=== PATIENT | female | born 1990 | race Caucasian/White ===

== ENCOUNTER 2020-03-27 08:32 | Emergency (ER) | payer OTHER ==
[~2020-03-27] VITALS: Ht 162.6 cm; Wt 59.0 kg
[2020-03-27 08:46] VITALS: Ht 162.6 cm; Wt 59.0 kg
[2020-03-27 09:18] LABS: ALBUMIN 4.9 g/dL (3.4-5.0); ALKALINE PHOSPHATASE 92 U/L (46-116); ALT/SGPT 38 U/L (14-59); AST/SGOT 29 U/L (15-37); BILIRUBIN TOTAL 1.12 mg/dL (0.20-1.00); CALCIUM 9.9 mg/dL (8.5-10.1); CARBON DIOXIDE 30.8 mmol/L (21-32); CHLORIDE SERUM 95 mmol/L (98-107); CREATININE SERUM 0.9 mg/dL (0.6-1.0); GFR1 > 60 mL/min; GLUCOSE SERUM 104 mg/dL (74-106); LIPASE 95 IU/L (73-393); SODIUM SERUM 134 mmol/L (136-145); TOTAL PROTEIN, SERUM 8.8 g/dL (6.4-8.2)
[2020-03-27 09:23] LABS: BASOPHIL % 0.8 % (0-2); PLATELET COUNT 355 x10^3mcL (130-400); RED CELL DISTRIBUTION WIDTH 13.3 % (11.5-14.5)
[2020-03-27 10:30] VITALS: BP 142/74
== END 2020-03-27 10:30 | disposition home or self-care (01) ==
LOC: ED 08:32
PROVIDERS: Student in an Organized Health Care Education/Training Program
DX: E87.6 Hypokalemia (principal); R11.15 Cyclical vomiting syndrome unrelated to migraine; R10.816 Epigastric abdominal tenderness; F12.188 Cannabis abuse with other cannabis-induced disorder; Z88.1 Allergy status to other antibiotic agents; Z88.8 Allergy status to other drugs, medicaments and biological substances
CPT/HCPCS: J1200; J1885; J2765

== ENCOUNTER 2020-04-04 07:34 | Emergency (ER) | payer OTHER ==
[~2020-04-04] VITALS: Ht 162.6 cm; Wt 56.7 kg
[2020-04-04 07:43] VITALS: Ht 162.6 cm; Wt 56.7 kg
[2020-04-04 09:51] LABS: BASOPHIL % 0.2 % (0-2); PLATELET COUNT 241 x10^3mcL (130-400); RED CELL DISTRIBUTION WIDTH 13.2 % (11.5-14.5)
[2020-04-04 09:57] LABS: CARBON DIOXIDE 25.6 mmol/L (21-32); CHLORIDE SERUM 105 mmol/L (98-107); POTASSIUM SERUM 3.4 mmol/L (3.5-5.1); SODIUM SERUM 139 mmol/L (136-145)
[2020-04-04 09:58] LABS: CALCIUM 7.7 mg/dL (8.5-10.1); CREATININE SERUM 0.7 mg/dL (0.6-1.0); GFR1 > 60 mL/min; GLUCOSE SERUM 104 mg/dL (74-106)
[2020-04-04 09:59] LABS: ALT/SGPT 28 U/L (14-59); AST/SGOT 20 U/L (15-37); BILIRUBIN TOTAL 0.42 mg/dL (0.20-1.00)
[2020-04-04 10:00] LABS: AMYLASE 52 U/L (25-115); LIPASE 155 IU/L (73-393)
[2020-04-04 10:15] LABS: ALKALINE PHOSPHATASE 69 U/L (46-116); TOTAL PROTEIN, SERUM 6.9 g/dL (6.4-8.2)
[2020-04-04 11:25] VITALS: BP 152/94
== END 2020-04-04 11:25 | disposition home or self-care (01) ==
LOC: ED 07:34
PROVIDERS: Emergency Medicine
DX: R10.13 Epigastric pain (principal); R11.2 Nausea with vomiting, unspecified; Z88.1 Allergy status to other antibiotic agents; Z88.8 Allergy status to other drugs, medicaments and biological substances
CPT/HCPCS: J1885; J2270; J2550; J3010; J3490; J7030; Q0162

== ENCOUNTER 2020-07-06 10:27 | Emergency (ER) | payer OTHER ==
[~2020-07-06] VITALS: Ht 162.6 cm; Wt 59.0 kg
[2020-07-06 10:36] VITALS: Ht 162.6 cm; Wt 59.0 kg
[2020-07-06 11:29] LABS: BASOPHIL % 0.1 % (0.2-1.3); PLATELET COUNT 323 x10^3mcL (179-408); RED CELL DISTRIBUTION WIDTH 12.7 % (12.3-17.7)
[2020-07-06 11:51] LABS: ALKALINE PHOSPHATASE 72 U/L (46-116); ALT/SGPT 43 U/L (14-59); AST/SGOT 31 U/L (15-37); BILIRUBIN TOTAL 0.7 mg/dL (0.20-1.00); CARBON DIOXIDE 27.6 mmol/L (21-32); CHLORIDE SERUM 97 mmol/L (98-107); GFR1 > 60 mL/min; GLUCOSE SERUM 127 mg/dL (74-106); LIPASE 109 IU/L (73-393); SODIUM SERUM 137 mmol/L (136-145); TOTAL PROTEIN, SERUM 8.1 g/dL (6.4-8.2)
[2020-07-06 12:00] LABS: CALCIUM 9.8 mg/dL (8.5-10.1); POTASSIUM SERUM 2.7 mmol/L (3.5-5.1)
[2020-07-06 18:21] VITALS: BP 130/91
== END 2020-07-06 18:21 | disposition home or self-care (01) ==
LOC: ED 10:27
PROVIDERS: Emergency Medicine
DX: E87.6 Hypokalemia (principal); R11.15 Cyclical vomiting syndrome unrelated to migraine; F12.90 Cannabis use, unspecified, uncomplicated
CPT/HCPCS: J2060; J2270; J2550; J3475; J3480; J3490; J7030; J7050